=== PATIENT | female | born 1985 | race Caucasian/White ===

== ENCOUNTER 2023-12-16 12:10 | Emergency (ER) | payer MEDICAID, SELFPAY ==
--- NOTE | ~2023-12-16 | US_ITS ---
EXAMINATION: US PELVIS CLINICAL INFORMATION: Vaginal bleeding COMPARISON: None available. TECHNIQUE: Ultrasound of the pelvis is performed using both transabdominal and transvaginal transducers along with Doppler. Transvaginal imaging is performed due to inadequate visualization transabdominally. FINDINGS: Uterus: The uterus is anteverted and measures 10.4 x 5.8 x 6.3 cm. The double wall endometrial thickness is 13 mm. There is a 2.2 x 1.0 x 0.9 cm hyperechoic endometrial polyp present with a feeding vessel being identified. The uterus is smooth in contour and has normal myometrial echogenicity. No visible fibroid. Adnexa: Both ovaries are visualized. There is normal color flow to the adnexa. There is no ovarian torsion. There is no pelvic ascites or fluid collection. Right ovary measures 2.5 x 2.5 x 1.7 cm. No abnormal right adnexal findings. Normal vascularity. Left ovary measures 2.2 x 1.8 x 1.7 cm. No left ovarian/adnexal abnormality appreciated. Normal vascular flow. US/US pelvic and transvaginal IMPRESSION: 2.2 x 1.0 x 0.9 cm echogenic endometrial polyp.
[2023-12-16 12:34] VITALS: BP 117/83; PULSE 88; RESP 18; TEMP 36.4; O2SAT 97; BMI 42.9
--- NOTE | 2023-12-16 12:36 | ED_ITS ---
HPI - General Adult General Chief complaint: Vaginal Bleeding Stated complaint: excessive vaginal bleeding Time Seen by Provider: 12/16/23 15:04 Source: patient Mode of arrival: ambulatory Limitations: no limitations History of Present Illness HPI narrative: Patient is a 38-year-old female with history of migraines presenting to the emergency department with complaint of heavy vaginal bleeding during menstruation for the past 3 days. States that she has been passing large clots which is not typical for her. Also has been bleeding larger volume than normal, changing pads every 2-3 hours. Complains of lower abdominal cramping worse on the left. Denies any back or flank pain. Denies any dysuria or frequency, other urinary symptoms. Denies fevers. Denies concern for STIs. States the only medication she is currently on is sumatriptan as needed for migraines, and is requesting a refill as she has been using this the past 2 days and is almost out. Denies anticoagulants, or any other medications. MD complaint: Vaginal bleeding Onset (ago): day(s) Severity: moderate Quality: other (cramping) Pain Consistency: colicky Associated symptoms: denies other symptoms Treatments prior to arrival: none Related Data Previous Rx's Medication Instructions Recorded sumatriptan succinate 50 mg tablet See Rx Instructions PO .COMPLEX 12/16/23 #10 tabs Allergies Allergy/AdvReac Type Severity Reaction Status Date / Time No Known Allergies Allergy Verified 12/16/23 12:34 Review of Systems 2 Review of Systems: As per HPI. Yes all other systems are reviewed and are negative Constitutional: Constitutional: Reports as per HPI COUNTS INCLUDE 234 BEDS AT THE [facility] Social History Social History Advance Directives: No Physical Exam ED Vital Signs: Vital Signs - 24 hr 12/16/23 12:34 Temperature 97.6 F Pulse Rate 88 Respiratory Rate 18 Blood Pressure 117/83 Pulse Oximetry 97 Oxygen Delivery Method Room Air BMI result Body Mass Index 42.9 Vital signs have been reviewed and appear to be correct. Blood pressure normal. Heart rate normal. Respiratory rate normal. Temperature normal. Oxygen saturation normal. Const General: cooperative, healthy appearing and no acute distress Orientation/consciousness: oriented to person, oriented to place, oriented to time and patient oriented x3 Limitations: no limitations HENMT Head: Yes normocephalic and Yes atraumatic Ears: external ears normal General nose exam: Normal external nose present Face and sinus: Yes face symmetric Mouth: oropharynx normal and moist mucous membranes Throat: Yes uvula midline Eyes Pupils: Equal, round and reactive pupils present Neck Neck: Yes normal visual inspection and Yes supple Resp Effort & Inspection: normal respiratory effort and able to speak in complete sentences Auscultation: clear to auscultation bilaterally Cardio Rate: regular rate Rhythm: regular rhythm Heart sounds: S1 normal heart sound present and S2 normal heart sound present GI Palpation (GI): Soft to palpation and nontender Auscultation: normoactive bowel sounds General: Yes no CVA tenderness Back/Spine/Pelvis Back: no CVA tenderness Skin General skin exam: elasticity normal and turgor normal Neuro General: oriented to person, oriented to place, oriented to time, patient oriented x3, moves all extremities, no focal motor deficits and CN's II-XI intact bilaterally Cranial nerves: Yes Equal, round and reactive pupils present Cognition (Neuro): normal cognition Extrem General: Yes full ROM, Yes no pedal edema and Yes no calf tenderness Psych Mental Status: mental status grossly normal Affect: normal affect Thought process: Normal thought process present Course Course Course Narrative: RME:?38 yo female here for eval of vaignal bleeding x2 days. LMP 1 mo ago. Began her menstrual period 2 days ago and endorses increased vaginal bleeding with clots which has never happened to her before. Using maxi pads, changing them every 2-3 hours. Not on AC. She is not sexually active. Denies chance of . Denies fever, chills Labs, UA, ultrasound ordered. Full HPI, ROS and PE to be performed by the primary ED provider. Medical Decision Making Medical Decision Making MDM Narrative: Patient is a 38-year-old female with history of migraines presenting to the emergency department with complaint of heavy vaginal bleeding during menstruation for the past 3 days. States that she has been passing large clots which is not typical for her. On exam patient is awake, A+Ox3, VS WNL, afebrile, normal neurological exam without focal deficits, physical exam findings as above. Given reported symptoms and physical exam findings, initial differential includes abnormal uterine bleeding, heavy menstrual bleeding, anemia, uterine fibroids, endometrial polyp. Labs notable for negative HCG, normal H&H. Ultrasound notable for endometrial polyp. My interpretation is in agreement with the radiologist's interpretation. Results discussed with patient and all questions answered. Patient states she is new to this area, will refer to Dr. Calvin. Strict return precautions discussed at bedside. Will prescribe a few sumatriptan until patient is able to obtain refill through PCP. Patient verbalized understanding of and agreement with plan. Differential Diagnosis Differential Diagnoses: The differential diagnosis associated with the presentation includes As per MDM. Admission/Observation Consideration of admission/observation: Escalation of care including admission/observation considered Lab Data MDM Lab Attestation statement: I reviewed the patient's lab results. As per MDM. 12/16/23 14:09 12/16/23 14:09 Labs: Lab Results 12/16/23 Range/Units 14:09 WBC 7.7 (4.8-10.8) X10*3/uL RBC 5.01 (4.20-5.50) X10*6/uL Hgb 14.1 (12.0-16.0) g/dl Hct 43.0 (37.0-47.0) % MCV 85.8 (80.0-98.0) fL MCH 28.1 (27.0-33.0) pg MCHC 32.8 (31.0-35.0) g/dl RDW 15.0 (11.0-16.0) % Plt Count 252 (160-400) X10*3/uL MPV 8.5 L (9.4-12.3) fL Immature Gran % (Auto) 0.3 (0.0-0.4) % Neut % (Auto) 62.5 (45-73) % Lymph % (Auto) 29.8 (20-40) % [place] % (Auto) 5.7 (2-11) % Eos % (Auto) 0.8 (0-4) % Baso % (Auto) 0.9 (0-2) % Lymph # (Auto) 2.3 (1.2-4.9) X10*3/uL [place] # (Auto) 0.4 (0.1-1.2) X10*3/uL Eos # (Auto) 0.1 (0.0-0.4) X10*3/uL Baso # (Auto) 0.1 (0.0-0.2) X10*3/uL Abs Immat Gran (auto) 0.02 (0.00-0.03) X10*3/uL Absolute Neuts (auto) 4.8 (2.0-8.3) x10*3/uL Absolute Nucleated RBC 0.000 (0.0-0.012) X10*3/uL Nucleated RBC % (auto) 0.0 (0.0-0.2) /100WBC Sodium 139 (135-145) mmol/L Potassium 4.1 (3.3-5.1) mmol/L Chloride 107 (96-108) mmol/L Carbon Dioxide 28 (22-29) mmol/L Anion Gap 8 L (12-20) BUN 12 (9-16) mg/dL Creatinine 0.84 (0.5-1.4) mg/dL Estim Creat Clear Calc 110.9 Estimated GFR > 60 Random Glucose 100 (60-115) mg/dL Calcium 9.2 (8.4-10.2) mg/dL Beta HCG, Quant < 2 mIU/mL Independent Interpretation I performed an independent interpretation of an: Ultrasound Interpretation: endometrial polyp Radiology Impression Discussion of test interpretation with radiology: I have reviewed the radiologist's reading. Radiologist Impression: US/US pelvic and transvaginal IMPRESSION: 2.2 x 1.0 x 0.9 cm echogenic endometrial polyp. External Record Review External record reviewed: Inpatient record, Office record and Outpatient record Prescription Management I considered prescription management with: Pain Medication Discharge Plan Discharge Clinical Impression: Endometrial polyp, Vaginal bleeding Patient Disposition: Home, Self-Care Instructions: Dysfunctional Uterine Bleeding (ED), Endometrial Polyps (DC) Additional Instructions: You were evaluated in the emergency department today for vaginal bleeding. Your ultrasound showed an endometrial polyp. Please follow-up with the OBGYN this week. Return to the emergency department if you are bleeding through more than 1 pad per hour, develop worsening abdominal pain, fever 100.4? F or greater, dizziness or lightheadedness, fainting, chest pain, shortness of breath or any other concerning symptoms. Prescriptions: New sumatriptan succinate 50 mg tablet See Rx Instructions .ROUTE .COMPLEX Qty: 10 0RF Rx Instructions: take 1 tab at onset of headache; if no relief may repeat 1 tab after at least 2 hrs; max = 4 tabs/24 hr Referrals: Jericho Calvin MD [Physician] -
[2023-12-16 14:13] LABS: MANUAL DIFF FLAG NO
[2023-12-16 14:15] LABS: Basophils Absolute Auto 0.1 X10*3/uL (0.0-0.2); Basophils Percent Auto 0.9 % (0-2); Eosinophils Absolute Auto 0.1 X10*3/uL (0.0-0.4); Eosinophils Percent Auto 0.8 % (0-4); Hemoglobin 14.1 g/dl (12.0-16.0); Imm Gran Abs Auto 0.02 X10*3/uL (0.00-0.03); Imm Gran Pct Auto 0.3 % (0.0-0.4); Lymphocytes Absolute Auto 2.3 X10*3/uL (1.2-4.9); Lymphocytes Percent Auto 29.8 % (20-40); Mean Corpuscular HGB Conc 32.8 g/dl (31.0-35.0); Mean Corpuscular Hemoglobin 28.1 pg (27.0-33.0); Mean Corpuscular Volume 85.8 fL (80.0-98.0); Mean Platelet Volume 8.5 fL (9.4-12.3); Monocytes Absolute Auto 0.4 X10*3/uL (0.1-1.2); Monocytes Percent Auto 5.7 % (2-11); Neutrophils Absolute Auto 4.8 x10*3/uL (2.0-8.3); Neutrophils Percent Auto 62.5 % (45-73); Platelet Count 252 X10*3/uL (160-400); Red Blood Count 5.01 X10*6/uL (4.20-5.50); White Blood Count 7.7 X10*3/uL (4.8-10.8)
[2023-12-16 14:37] LABS: Anion Gap 8 (12-20); Blood Urea Nitrogen 12 mg/dL (9-16); Calcium 9.2 mg/dL (8.4-10.2); Carbon Dioxide 28 mmol/L (22-29); Chloride 107 mmol/L (96-108); Creatinine Clr Calc Pharmacy 110.9; Estimated Glomerular Filt Rate > 60; Glucose Random 100 mg/dL (60-115); Potassium 4.1 mmol/L (3.3-5.1); Sodium 139 mmol/L (135-145)
[2023-12-16 14:39] LABS: HCG Quantitative < 2 mIU/mL
== END 2023-12-16 16:38 | disposition home or self-care (01) ==
PROVIDERS: Physician Assistant Medical; Emergency Provider Emergency Medicine
DX: N84.0 Polyp of corpus uteri (principal); N93.8 Other specified abnormal uterine and vaginal bleeding; R25.2 Cramp and spasm; Z79.899 Other long term (current) drug therapy
CPT/HCPCS: 36415; 76830; 76856; 80048; 84702; 85025; 99282; 99284

== ENCOUNTER 2024-02-06 22:34 | Emergency (ER) | payer OTHER, SELFPAY ==
--- NOTE | ~2024-02-06 | XR_ITS ---
EXAMINATION: XR SOFT TISSUE NECK CLINICAL INDICATION: Pain. COMPARISON: None available. TECHNIQUE: 2 views of the soft tissue neck were obtained. FINDINGS: Soft tissue films of the neck demonstrate a normal larynx, pharynx and upper trachea. No soft tissue swelling or opaque foreign body is demonstrated. XR/XR soft tissue neck IMPRESSION: Unremarkable examination.
--- NOTE | ~2024-02-06 | XR_ITS ---
EXAMINATION: XR SHOULDER, LEFT CLINICAL INFORMATION: Pain. COMPARISON: None available. TECHNIQUE: 3 views of the left shoulder. FINDINGS: The bones and soft tissues are normal. No fracture. Glenohumeral and acromioclavicular alignment is anatomic with normal joint space. No abnormal soft tissue calcifications. XR/XR shoulder LT min 2V IMPRESSION: No significant abnormality identified.
[2024-02-06 22:46] VITALS: BP 149/101; PULSE 82; RESP 14; TEMP 36.9; O2SAT 98; BMI 42.8
--- NOTE | 2024-02-07 07:04 | ED_ITS ---
HPI - General Adult General Chief complaint: Neck Pain/Injury Stated complaint: left neck/shoulder pain work inj Time Seen by Provider: 02/07/24 07:03 Source: patient Mode of arrival: ambulatory Limitations: no limitations History of Present Illness HPI narrative: Patient is a 38 year old assigned female at with no reported medical history presenting to the emergency department today with left sided neck and shoulder pain. Patient states that over the last few days she has had left sided neck and shoulder pain that feels as a pinching and tingling feeling. Patient denies any dizziness, lightheadedness, abdominal pain, nausea, vomiting, fever, chills, blurry vision, double vision, loss of vision, chest pain, difficulty breathing, shortness of breath, back pain, night sweats, pain with urination, increased urinary frequency, increased urinary urgency, blood in her urine or stool, syncope or a near syncopal episode, recent trauma or falls, bowel incontinence, bladder incontinence, bowel retention, bladder retention, or any other complaints at this time. Onset (ago): day(s) Location: neck, left and upper extremity Severity: mild Severity scale (1-10): 4 Quality: aching and constant Pain Consistency: constant Relieving factors: none Exacerbating factors: none Associated symptoms: denies other symptoms Treatments prior to arrival: none Related Data Previous Rx's ?Medication ?Instructions ?Recorded sumatriptan succinate 50 mg tablet See Rx Instructions PO .COMPLEX 12/16/23 #10 tabs cyclobenzaprine 5 mg tablet 5 mg PO TID PRN shoulder pain 7 02/07/24 days #21 tabs sumatriptan succinate 50 mg tablet See Rx Instructions PO .COMPLEX 02/07/24 #10 tabs Allergies Allergy/AdvReac Type Severity Reaction Status Date / Time No Known Allergies Allergy Verified 02/06/24 22:49 Review of Systems Constitutional: Constitutional: Reports no additional constitutional complaints, Denies chills, Denies fever(s) and Denies night sweats Eyes: Eyes: Reports no additional eye complaints, Denies blurry vision, Denies change in vision, Denies diplopia, Denies eye discharge, Denies loss of vision and Denies eye pain ENT: Denies dizziness and Reports neck pain Cardiovascular: Cardiovascular: Reports no additional cardiovascular complaints, Denies chest pain, Denies lightheadedness, Denies Loss of Consciousness and Denies dyspnea Respiratory: Respiratory: Reports no additional respiratory complaints and Denies dyspnea Gastrointestinal: Gastrointestinal: Reports no additional gastrointestinal complaints, Denies abdominal pain, Denies melena, Denies hematochezia, Denies change in bowel habits and Denies change in stool character Genitourinary: Genitourinary: Denies hematuria, Denies urinary frequency, Denies dysuria, Denies urinary incontinence, Denies urinary hesitancy and Denies urinary urgency Musculoskeletal: Musculoskeletal: Reports no additional musculoskeletal complaints, Reports neck pain and Denies numbness Comments: left shoulder pain Neurologic: Denies dizziness, Denies loss of vision and Denies numbness Psychiatric: Psychiatric: Reports no additional psychiatric complaints Endocrine: Endocrine: Reports no additional endocrine complaints Hematologic/Lymphatic: Hematologic/Lymphatic: Reports no additional hematologic/lymphatic complaints Allergic/Immunologic: Allergic/Immunologic: Reports no additional allergic/immunologic complaints PMFSH Past Medical History Attestation statement: The following information was validated with the patient. Source: old records reviewed and nursing notes reviewed Social History Social History Advance Directives: No Advance Directives Information Provided: Yes Physical Exam ED Vital Signs: Vital Signs - 24 hr 02/06/24 22:46 02/07/24 07:23 02/07/24 07:45 Temperature 98.5 F 97.1 F 97.1 F Pulse Rate 82 88 88 Respiratory Rate 14 14 14 Blood Pressure 149/101 H 149/94 H 149/94 H Pulse Oximetry 98 100 100 Oxygen Delivery Method Room Air Room Air Room Air BMI result Body Mass Index 42.8 Const General: cooperative, no acute distress, alert and awake Nutritional Appearance: well nourished Orientation/consciousness: patient oriented x3 Limitations: no limitations [facility] Head: Yes normal to inspection and Yes atraumatic Ears: hearing grossly normal bilaterally and external ears normal General nose exam: Normal external nose present, no nasal discharge noted and no epistaxis Face and sinus: Yes normal facial exam, No abrasion and No laceration Mouth: Normal oral and palatal mucosa present, no drooling and no muffled voice Eyes General: appearance normal, both eyes and all related structures Periorbital: periorbital findings normal Eyelids: Yes eyelids normal Conjunctivae: conjunctivae normal Pupils: Equal, round and reactive pupils present EOM: EOMs intact bilaterally Neck Neck: Yes normal visual inspection, Yes full ROM and Yes no lymphadenopathy Chest Chest palpation & inspection: normal inspection of the chest Resp Effort & Inspection: normal respiratory effort and able to speak in complete sentences GI Inspection: Yes normal to inspection Neuro General: patient oriented x3 and moves all extremities Cranial nerves: Yes Equal, round and reactive pupils present Cognition (Neuro): normal cognition Motor exam (neuro): 5/5 motor strength present throughout Sensory Exam: Normal double simultaneous stimulation for sensation Coordination: [id number] test normal Extrem General: Yes normal to inspection, Yes full ROM and Yes capillary refill normal Psych Appearance: grossly normal Mental Status: mental status grossly normal Affect: normal affect Attitude: cooperative Thought process: Normal thought process present Thought content: Normal thought content present Insight: Good insight present (Psych) Medications Administered Discontinued Medications Generic Name Dose Route Start Last Admin Trade Name Freq PRN Reason Stop Dose Admin Cyclobenzaprine HCl 5 mg 02/07/24 07:18 02/07/24 07:37 Cyclobenzaprine Hcl 5 Mg Tablet PO 02/07/24 07:19 5 mg ONCE ONE Administration Ketorolac Tromethamine 15 mg 02/07/24 07:18 02/07/24 07:37 Ketorolac Tromethamine 15 Mg/Ml Vial IM 02/07/24 07:19 15 mg ONCE ONE Administration Medical Decision Making Medical Decision Making [facility] Narrative: Patient is a 38 year old assigned female at with no reported medical history presenting to the emergency department today with left sided neck and shoulder pain. Patient's physical exam was unremarkable. Patient's left shoulder and soft tissue neck x-rays showed no acute process. I explained my physical exam findings as well as all test results to the patient. I answered all questions asked by the patient. I stressed the importance of the patient taking her medication as prescribed. I stressed the importance of the patient following up with her primary care provider and an orthopedic provider. I stressed the importance of the patient returning to the emergency department immediately if her symptoms were to worsen or if she were to develop any dizziness, shortness of breath, difficulty breathing, chest pain, blurry vision, loss of vision, nausea, vomiting, abdominal pain, fever, chills, back pain, or any other complaints. Patient verbalized agreement and understanding with this treatment plan and discharge. Differential Diagnosis Differential Diagnoses: The differential diagnosis associated with the presentation includes Cervical radiculopathy Neck pain Shoulder pain Admission/Observation Consideration of admission/observation: Escalation of care including admission/observation considered Patient would have been admitted to the hospital had her work up had any findings where hospital admission was appropriate and her clinical presentation warranted hospital admission. Independent Interpretation I performed an independent interpretation of an: Plain X-Ray Interpretation: My interpretation is in agreement with the radiologist's impression of these imaging studies. EXAMINATION: XR SOFT TISSUE NECK CLINICAL INDICATION: Pain. COMPARISON: None available. TECHNIQUE: 2 views of the soft tissue neck were obtained. FINDINGS: Soft tissue films of the neck demonstrate a normal larynx, pharynx and upper trachea. No soft tissue swelling or opaque foreign body is demonstrated. XR/XR soft tissue neck IMPRESSION: Unremarkable examination. Dictated By: Tushar Blake Signed By: Electronically signed by Tushar Blake 02/07/24 0020 EXAMINATION: XR SHOULDER, LEFT CLINICAL INFORMATION: Pain. COMPARISON: None available. TECHNIQUE: 3 views of the left shoulder. FINDINGS: The bones and soft tissues are normal. No fracture. Glenohumeral and acromioclavicular alignment is anatomic with normal joint space. No abnormal soft tissue calcifications. XR/XR shoulder LT min 2V IMPRESSION: No significant abnormality identified. Dictated By: Tushar Blake Signed By: Electronically signed by Tushar Blake 02/06/24 [id number] Radiology Impression Discussion of test interpretation with radiology: I have reviewed the radiologist's reading. Prescription Management I considered prescription management with: Pain Medication (patient prescribed pain medication) Discharge Plan Discharge Clinical Impression: Cervical radiculopathy Patient Disposition: Home, Self-Care Instructions: Cervical Radiculopathy (ED) Additional Instructions: Follow up with your primary care provider. Return to the emergency department immediately if your symptoms worsen or if you develop any dizziness, shortness of breath, difficulty breathing, chest pain, blurry vision, loss of vision, nausea, vomiting, abdominal pain, fever, chills, back pain, or any other complaints. Prescriptions: New cyclobenzaprine 5 mg tablet 5 mg PO TID PRN (Reason: shoulder pain) 7 Days Qty: 21 0RF sumatriptan succinate 50 mg tablet See Rx Instructions .ROUTE .COMPLEX Qty: 10 3RF Rx Instructions: take 1 tab at onset of headache; if no relief may repeat 1 tab after at least 2 hrs; max = 4 tabs/24 hr No Action sumatriptan succinate 50 mg tablet See Rx Instructions .ROUTE .COMPLEX Qty: 10 0RF Rx Instructions: take 1 tab at onset of headache; if no relief may repeat 1 tab after at least 2 hrs; max = 4 tabs/24 hr Referrals: [facility] Family Medicine [Provider Group] (Call to establish and follow up with a primary care provider. If you already have a primary care provider, please follow up with them.) [facility] Primary Care[facility] [Provider Group] [facility] Primary [facility] [Provider Group] [facility] [Provider Group] (Call to establish and follow up with an orthopedic provider. ) Stand Alone Forms: Work/School Release Interventions: ED Discharge Assessment Last Done: 02/07/24 07:45 Discharge Date/Time: 02/07/24 07:46 Print Language: Citizen Of [place]
[2024-02-07 07:23] VITALS: BP 149/94; PULSE 88; RESP 14; TEMP 36.2; O2SAT 100
[2024-02-07] MEDS: Cyclobenzaprine HCl 5 MG TABLET PO (07:37)
[2024-02-07] MEDS: Ketorolac Tromethamine 15 MG/ML VIAL IM (07:37)
[2024-02-07 07:45] VITALS: BP 149/94; PULSE 88; RESP 14; TEMP 36.2; O2SAT 100
== END 2024-02-07 07:46 | disposition home or self-care (01) ==
PROVIDERS: Emergency Provider Emergency Medicine
DX: M54.12 Radiculopathy, cervical region (principal); M25.512 Pain in left shoulder; M54.2 Cervicalgia
CPT/HCPCS: 70360; 73030; 96372; 99283; 99284; J1885

== ENCOUNTER 2025-04-05 09:17 | Outpatient (AMB) | payer OTHER, SELFPAY ==
--- NOTE | 2025-04-05 09:20 | MHC.PC.OV ---
Vital Signs 04/05/25 09:22 04/05/25 09:52 Height 5 ft 3.98 in Weight 232 lb BMI 39.8 BP 120/80 150/112 H Blood Pressure Location Lt brachial Lt brachial Position Sitting Sitting Pulse 72 Pulse Source Pulse Oximeter Temp 97.1 F Temp Source Temporal Artery Scan Pulse Oximetry (%) 99 Oxygen Delivery Method Room Air Intake Visit Reasons: establish care Intake Note: Patient is a new patient here to establish care for Migraine, HTN, neck/upper back pain, right foot pain. Transferring care from . Medical records have been requested and have not received. Graduate Fellow Required: No Textile Conversion Manager: Not Required per policy Accompanied by: Self / Same As Patient Allergies No Known Allergies Allergy (Verified 04/05/25 09:43) Medication List - Last Reconciled 04/05/25 by Geraldine Nicholas PA-C propranolol ER 60 mg PO DAILY sumatriptan succinate take 1 tab at onset of headache; if no relief may repeat 1 tab after at least 2 hrs; max = 4 tabs/24 hr Tobacco use date assessed: 04/05/25 Dental Screening Dental Screen Date: 04/05/25 Did you have a dental visit in the last 12 months?: Yes Did you have a dental problem in the last 6 months where you did not have access to dental care?: No Was dental information given to patient?: Patient has dentist HPI establish care HPI Details 39-year-old female coming to the office for the 1st time. Presenting with hypertension and migraine management concerns. Hypertension was noted at multiple instances, with high readings initially observed by a dentist and later confirmed by ER visits starting December/December of the current year. Home readings consistently high. Symptoms include headaches and dizziness associated with elevated pressure. She was recently seen in [facility] this [place] workup was reassuring. Migraine episodes have been a chronic issue, managed with propranolol and sumatriptan, taken when symptoms arise. Describes limitations due to a restricted medication supply. The patient experienced increased menstrual bleeding last year, investigated at the ER and diagnosed as an endometrial polyp, but no specialist follow-up occurred. She mentioned infertility concerns, as conception efforts with her partner have been unsuccessful over the past several months. [facility] Surgical History No pertinent past surgical history Social History (Reviewed 04/05/25 @ 09:55 by CAN Franco Housing: Apartment Alcohol intake: never Patient Tobacco Use Status: Never used Tobacco e-Cigarette/Vaping Use: Never Used Second Hand Smoke Exposure: No service: No Current occupational status: unemployed Cognitive needs: No Hearing needs: No Vision needs: No Questionnaire PHQ-9 Over the last 2 weeks, how often have you been bothered by any of the following problems? 1. Little interest or pleasure in doing things: several days 2. Feeling down, depressed, or hopeless: several days 3. Trouble falling or staying asleep, or sleeping too much: several days 4. Feeling tired or having little energy: not at all 5. Poor appetite or overeating: several days 6. Feeling bad about yourself - or that you are a failure or have let yourself or your family down: not at all 7. Trouble concentrating on things, such as reading the newspaper or watching television: not at all 8. Moving or speaking so slowly that other people could have noticed. Or the opposite - being so fidgety or restless that you have been moving around a lot more than usual: not at all 9. Thoughts that you would be better off or of hurting yourself in some way: not at all Total score: 4 Depression Screening Interpretation: Positive Depression Screening Done: Yes Source: Developed by Drs. Tushar Robles, Paola Alaniz, Ezekiel Dorsey and colleagues, with an educational viktoriya from [employer]. Thrive Questionnaire Date Thrive assessed: 03/29/25 I am a: Patient What is your living situation today?: I do not have a steady places to live I am temporarily staying with others Within the past 12 months, did the food you bought not last and you didn't have the money to get more?: Often true Within the past 12 months, did you worry whether your food would run out before you got money to buy more?: Often true Do you have trouble paying for medicines?: No Do you have trouble getting transportation to medical appointments?: No Do you have trouble paying your heating and electricity bill?: I choose not to answer this question Do you have trouble taking care of your child, family member or friend?: I choose not to answer this question Do you have trouble with day-to-day activities such as bathing, preparing meals, shopping, managing finances, etc.?: No Are you currently unemployed and looking for a job?: Yes Are you interested in more education?: Yes Please select the resources that you would like help with: Housing/Chcf, Food, Job search/training and Education Currently or been in a relationship where the following occur: I choose not to answer THRIVE Score: 3 AUDIT C Alcohol Use Questionnaire (AUDIT-C) 1. How often do you have a drink containing alcohol?: Never 3. How often do you have six or more drinks on one occasion?: Never Total Score: 0 GABBY-7 AMB Questionnaire GABBY-7 Date GABBY - 7 assessed: 04/05/25 Feeling nervous, anxious, or on edge: 1 = Several days Not being able to stop or control worryin = Several days Worrying too much about different things: 1 = Several days Trouble relaxin = Several days Being so restless that it is hard to sit still: 0 = Not at all Becoming easily annoyed or irritable: 1 = Several days Feeling afraid as if something awful might happen: 1 = Several days Total GABBY-7 score (0-4 normal; 5-9 mild; 10-14 moderate; 15-21 severe): 6 Source: Developed by Drs. Tushar Robles, Paola Alaniz, Ezekiel Dorsey and colleagues, with an educational viktoriya from [employer]. Review of Systems Const Denies body aches, Denies chills, Denies fever(s), Reports headache(s) and Denies poor appetite Eyes Reports no additional complaints ENT Denies dysphagia, Denies dizziness, Reports headache(s) and Denies odynophagia Card Denies chest pain, Denies syncope, Denies edema, Denies irregular heart rhythm, Denies lightheadedness and Denies dyspnea Resp Denies cough and Denies dyspnea GI Denies abdominal pain, Denies constipation, Denies dysphagia, Denies diarrhea, Denies nausea, Denies odynophagia and Denies vomiting Reports no additional complaints Musc Reports no additional complaints and Denies abnormal gait Skin/Breast Reports system reviewed and no additional complaints, except as documented Neuro Denies abnormal gait, Denies dizziness, Denies syncope and Reports headache(s) Psych Reports no additional complaints Physical exam (Primary Care) Vital Signs: Last Vital Signs Temp 97.1 F 04/05/25 09:22 Pulse 72 04/05/25 09:22 BP 120/80 04/05/25 09:22 Pulse Ox 99 04/05/25 09:22 Oxygen Delivery Method Room Air 04/05/25 09:22 BMI result Body Mass Index 39.8 Tobacco/Smoking Status: Tobacco use Status Tobacco use date assessed 04/05/25 04/05/25 09:34 Patient Tobacco Use Status Never used Tobacco 04/05/25 09:34 e-Cigarette/Vaping Use Never Used 04/05/25 09:34 PHQ-9: PHQ-9 Score PHQ-9: Total score 4 04/05/25 09:34 Depression Screening Interpretation: Positive Thrive Assessment: Date of Thrive Assessment Date Thrive assessed 03/29/25 04/05/25 09:34 Currently or been in a relationship where the following occur: I choose not to answer Const General: cooperative, healthy appearing, comfortable and no acute distress Orientation/consciousness: patient oriented x3 HENMT Head: Yes normocephalic Ears: hearing grossly normal bilaterally General nose exam: Normal external nose present Eyes General: appearance normal, both eyes and all related structures Conjunctivae: conjunctivae normal Neck Neck: Yes full ROM and Yes no lymphadenopathy Resp Effort & Inspection: normal respiratory effort Auscultation: clear to auscultation bilaterally, no crackles, no rales, no rhonchi and no wheezes Cardio Rate: regular rate Rhythm: regular rhythm Skin General skin exam: no rashes or lesions noted Neuro General: patient oriented x3 Gait exam (Neuro): Normal gait present Extrem General: Yes normal to inspection, Yes full ROM and No edema Psych Affect: normal affect Attitude: cooperative Insight: Good insight present (Psych) Judgement: Good judgement present (Psych) Coding Level of Care Code New Pt Level 4 (64918) Diagnoses Migraine G43.909 Hypertension I10 Heavy menses N92.0 Infertility, female N97.9 Obesity (BMI 30-39.9) E66.9 Assessment & Plan Assessment & Plan (1) Migraine: Code(s): G43.909 - Migraine, unspecified, not intractable, without status migrainosus Category: Medical Plan: Patient reporting occasional migraines she uses sumatriptan as needed with good benefit. (2) Hypertension: Code(s): I10 - Essential (primary) hypertension Category: Medical Plan: Patient was previously on propranolol supposedly supposed to be taking it every day but was only using as needed. At this time her blood pressure remains extremely elevated in several instances and as well as home. Plan to start on amlodipine 5 mg for blood pressure management as propranolol has not been effective. Avoid salt intake and encourage healthy diet and regular exercise. Denies any symptoms at this time. Reviewed red flag symptoms and when to present for re-evaluation (3) Heavy menses: Code(s): N92.0 - Excessive and frequent menstruation with regular cycle Category: Medical Plan: Patient reporting heavy menses for several years. Referral was placed to gynecology today. (4) Infertility, female: Code(s): N97.9 - Female infertility, unspecified Category: Medical Plan: Patient has been trying to can not see for over 7 months. Referral was placed to [facility] today. (5) Obesity (BMI 30-39.9): Code(s): E66.9 - Obesity, unspecified Category: Medical Plan: Healthy diet and regular exercise is encouraged. Referral was placed to weight management clinic at patient request. She is interested in possible surgical correction. Plan This note was constructed using voice recognition software. While every effort has been made to ensure accuracy and clinical business analyst, still areas may have been included sometimes these areas may affect the content or meeting of the given symptoms. Total time spent caring for the patient today was 30 minutes. This includes time spent before the visit reviewing the chart, time spent during the visit, and time spent after the visit and documentation. Patient was informed and verbally consented to the use of an ambient scribe for clinic note documentation during this visit. Orders: Orders Vitamin D 25-OH Total Today I10 - Essential (primary) hypertension, Z00.00 - Encounter for general adult medical examination without abnormal findings TSH reflex Free T4 Today I10 - Essential (primary) hypertension, Z00.00 - Encounter for general adult medical examination without abnormal findings Free T4 (Free Thyroxine) Today I10 - Essential (primary) hypertension, Z00.00 - Encounter for general adult medical examination without abnormal findings Vitamin B12 and Folate Today I10 - Essential (primary) hypertension, Z13.21 - Encounter for screening for nutritional disorder Comprehensive Met. Panel Today I10 - Essential (primary) hypertension, Z00.00 - Encounter for general adult medical examination without abnormal findings Complete Blood Count Auto Diff Today I10 - Essential (primary) hypertension, Z00.00 - Encounter for general adult medical examination without abnormal findings Lipid Panel Today Z13.220 - Encounter for screening for lipoid disorders Referrals Infertility Reproductive Referral (female) N97.9 - Female infertility, unspecified Medical Weight Management Referral E66.9 - Obesity, unspecified Nurse Navigator Referral I10 - Essential (primary) hypertension IT BUSINESS PROCESS ARCHITECT Referral N92.0 - Excessive and frequent menstruation with regular cycle, Z12.4 - Encounter for screening for malignant neoplasm of cervix Medications: New amlodipine 5 mg PO DAILY 30 tabs 1RF Refilled sumatriptan succinate take 1 tab at onset of headache; if no relief may repeat 1 tab after at least 2 hrs; max = 4 tabs/24 hr 10 tabs 3RF Discontinued sumatriptan succinate Discontinued Reason: Duplicate take 1 tab at onset of headache; if no relief may repeat 1 tab after at least 2 hrs; max = 4 tabs/24 hr 10 tabs 0RF cyclobenzaprine Discontinued Reason: Patient no longer taking 5 mg PO TID 7 days PRN 21 tabs 0RF shoulder pain
[2025-04-05 09:22] VITALS: BP 120/80; PULSE 72; TEMP 36.2; O2SAT 99; BMI 39.8
[2025-04-05 09:52] VITALS: BP 150/112
== END 2025-04-05 10:15 | disposition home or self-care (01) ==
LOC: HO.HMCH 09:18
DX: G43.909 Migraine, unspecified, not intractable, without status migrainosus (principal); I10 Essential (primary) hypertension; N92.0 Excessive and frequent menstruation with regular cycle; N97.9 Female infertility, unspecified; E66.9 Obesity, unspecified

== ENCOUNTER → 2025-04-05 09:17 | Outpatient (BNVA) | payer OTHER, SELFPAY | DX: I10 Essential (primary) hypertension (principal); G43.909 Migraine, unspecified, not intractable, without status migrainosus; M54.2 Cervicalgia; M79.671 Pain in right foot; N92.0 Excessive and frequent menstruation with regular cycle; N97.9 Female infertility, unspecified; E66.9 Obesity, unspecified; Z68.39 Body mass index [BMI] 39.0-39.9, adult | CPT/HCPCS: 99202 ==

== ENCOUNTER → 2025-05-09 11:45 | Outpatient (BNVA) | payer OTHER, SELFPAY | DX: Z01.30 Encounter for examination of blood pressure without abnormal findings (principal) | CPT/HCPCS: 99211 ==

== ENCOUNTER 2025-06-13 09:33 | Outpatient (REF) | payer OTHER, SELFPAY ==
[2025-06-13 10:55] LABS: MANUAL DIFF FLAG NO
[2025-06-13 11:01] LABS: Hematocrit 37.1 % (37.0-47.0); Hemoglobin 12.1 g/dl (12.0-16.0); Imm Gran Abs Auto 0.02 X10*3/uL (0.00-0.03); Imm Gran Pct Auto 0.3 % (0.0-0.4); Lymphocytes Absolute Auto 2.6 X10*3/uL (1.2-4.9); Mean Corpuscular HGB Conc 32.6 g/dl (31.0-35.0); Mean Corpuscular Hemoglobin 27.7 pg (27.0-33.0); Mean Corpuscular Volume 84.9 fL (80.0-98.0); NRBC Abs Auto 0.000 X10*3/uL (0.0-0.012); NRBC Pct Auto 0.0 /100WBC (0.0-0.2); Platelet Count 264 X10*3/uL (160-400); Red Blood Count 4.37 X10*6/uL (4.20-5.50); White Blood Count 7.9 X10*3/uL (4.8-10.8)
[2025-06-13 11:26] LABS: Alanine Aminotransferase 13 U/L (0-31); Albumin Level 3.9 g/dL (3.5-5.0); Alkaline Phosphatase 82 U/L (39-117); Anion Gap 10 (12-20); Aspartate Amino Transferase 24 U/L (5-31); Blood Urea Nitrogen 12 mg/dL (9-16); Calcium 8.3 mg/dL (8.4-10.2); Carbon Dioxide 25 mmol/L (22-29); Chloride 107 mmol/L (96-108); Cholesterol 162 mg/dL (<200); Estimated Glomerular Filt Rate > 60; HDL Cholesterol 39 mg/dL (>40); Potassium 4.0 mmol/L (3.3-5.1); Sodium 138 mmol/L (135-145); Total Protein 6.7 g/dL (6.5-8.0); Triglycerides 68 mg/dL (<150)
[2025-06-13 11:44] LABS: Free T4 (Free Thyroxine) 1.02 ng/dL (0.71-1.85)
[2025-06-13 11:48] LABS: Folate 10.3 ng/mL (> or = 4.0); Vitamin B12 550 pg/mL (200-900)
== END 2025-06-13 09:34 | disposition home or self-care (01) ==
LOC: HO.10HDL 09:33
DX: I10 Essential (primary) hypertension (principal); E66.9 Obesity, unspecified; N97.9 Female infertility, unspecified; K59.00 Constipation, unspecified; J34.89 Other specified disorders of nose and nasal sinuses; Z00.00 Encounter for general adult medical examination without abnormal findings
CPT/HCPCS: 36415; 80053; 80061; 82306; 82607; 82746; 84439; 84443; 85025; 99212

== ENCOUNTER 2025-06-13 14:45 | Outpatient (AMB) | payer OTHER, SELFPAY ==
--- NOTE | 2025-06-13 14:58 | A.OFFPC_ITS ---
Vital Signs 06/13/25 15:00 06/13/25 15:23 Height 5 ft 3.98 in Weight 233 lb BMI 40.0 BP 140/90 H 148/102 H Blood Pressure Location Lt brachial Lt brachial Position Sitting Sitting Pulse 75 Pulse Source Pulse Oximeter Pulse Oximetry (%) 97 Oxygen Delivery Method Room Air Intake Visit Reasons: f/u repeat phq-9 Health Systems Analyst Required: No Accompanied by: Self / Same As Patient Allergies No Known Allergies Allergy (Verified 06/13/25 15:12) Medication List - Last Reconciled 06/13/25 by Geraldine Nicholas PA-C nifedipine ER 30 mg PO DAILY sumatriptan succinate take 1 tab at onset of headache; if no relief may repeat 1 tab after at least 2 hrs; max = 4 tabs/24 hr Tobacco use date assessed: 06/13/25 Dental Screening Dental Screen Date: 06/13/25 Did you have a dental visit in the last 12 months?: Yes Did you have a dental problem in the last 6 months where you did not have access to dental care?: No Was dental information given to patient?: Patient has dentist HPI f/u repeat phq-9 HPI Details 40 year old female with past medical his tory of migraine, hypertension, heavy menses, obesity last seen 03/2025 coming in for follow up. Presenting with concerns about hypertension management during , evaluation of sinus symptoms, and addressing constipation issues. The patient has a history of hypertension and was prescribed nifedipine, which she stopped taking due to concerns about its safety during . She has not been monitoring her blood pressure at home but reports feeling that it is under control. However, an in-office measurement showed elevated blood pressure at 140/102 mmHg. The patient experienced a miscarriage recently and is concerned about the potential impact of nifedipine on . She is attempting to conceive again and is considering alternative antihypertensive medications. The patient reports sinus pressure and headaches for the past three weeks, with occasional nosebleeds. She denies runny nose but experiences severe headaches. The patient experiences constipation, with bowel movements occurring every two to three days. She has tried dietary fiber supplements in the past but is concer gabriela about dependency. Her water intake is low, which may contribute to her symptoms. [facility] Surgical History No pertinent past surgical history Social History Housing: Apartment Alcohol intake: never Patient Tobacco Use Status: Never used Tobacco e-Cigarette/Vaping Use: Never Used Second Hand Smoke Exposure: No service: No Current occupational status: unemployed Cognitive needs: No Hearing needs: No Vision needs: No Questionnaire Thrive Questionnaire Date Thrive assessed: 06/13/25 I am a: Patient What is your living situation today?: I do not have a steady places to live I am temporarily staying with others Within the past 12 months, did the food you bought not last and you didn't have the money to get more?: Often true Within the past 12 months, did you worry whether your food would run out before you got money to buy more?: Often true Do you have trouble paying for medicines?: No Do you have trouble getting transportation to medical appointments?: No Do you have trouble paying your heating and electricity bill?: I choose not to answer this question Do you have trouble taking care of your child, family member or friend?: I choose not to answer this question Do you have trouble with day-to-day activities such as bathing, preparing meals, shopping, managing finances, etc.?: No Are you currently unemployed and looking for a job?: Yes Are you interested in more education?: Yes Currently or been in a relationship where the following occur: I choose not to answer THRIVE Score: 3 GABBY-7 AMB Questionnaire GABBY-7 Date GABBY - 7 assessed: 06/13/25 Source: Developed by Drs. Tushar Robles, Paola Alaniz, Ezekiel Dorsey and colleagues, with an educational viktoriya from [employer]. Review of Systems Const Denies body aches, Denies chills, Denies fever(s), Denies headache(s) and Denies poor appetite Eyes Reports no additional complaints ENT Denies dysphagia, Denies dizziness, Denies headache(s) and Denies odynophagia Card Denies chest pain, Denies syncope, Denies edema, Denies irregular heart rhythm, Denies lightheadedness and Denies dyspnea Resp Denies cough and Denies dyspnea GI Denies abdominal pain, Denies constipation, Denies dysphagia, Denies diarrhea, Denies nausea, Denies odynophagia and Denies vomiting Reports no additional complaints Musc Reports no additional complaints and Denies abnormal gait Skin/Breast Reports system reviewed and no additional complaints, except as documented Neuro Denies abnormal gait, Denies dizziness, Denies syncope and Denies headache(s) Psych Reports no additional complaints Physical exam (Primary Care) Vital Signs: Last Vital Signs Pulse 75 06/13/25 15:00 BP 148/102 H 06/13/25 15:23 Pulse Ox 97 06/13/25 15:00 Oxygen Delivery Method Room Air 06/13/25 15:00 BMI result Body Mass Index 40.0 Tobacco/Smoking Status: Tobacco use Status Tobacco use date assessed 06/13/25 06/13/25 15:01 Patient Tobacco Use Status Never used Tobacco 06/13/25 15:01 e-Cigarette/Vaping Use Never Used 06/13/25 15:01 Thrive Assessment: Date of Thrive Assessment Date Thrive assessed 06/13/25 06/13/25 15:01 Currently or been in a relationship where the following occur: I choose not to answer Const General: cooperative, healthy appearing, comfortable and no acute distress Orientation/consciousness: patient oriented x3 HENMT Head: Yes normocephalic Ears: hearing grossly normal bilaterally General nose exam: Normal external nose present Eyes General: appearance normal, both eyes and all related structures Conjunctivae: conjunctivae normal Neck Neck: Yes full ROM and Yes no lymphadenopathy Resp Effort & Inspection: normal respiratory effort Auscultation: clear to auscultation bilaterally, no crackles, no rales, no rhonchi and no wheezes Cardio Rate: regular rate Rhythm: regular rhythm Skin General skin exam: no rashes or lesions noted Neuro General: patient oriented x3 Gait exam (Neuro): Normal gait present Extrem General: Yes normal to inspection, Yes full ROM and No edema Psych Affect: normal affect Attitude: cooperative Insight: Good insight present (Psych) Judgement: Good judgement present (Psych) Coding Level of Care Code Est Pt Level 4 (06259) Diagnoses Hypertension I10 Obesity (BMI 30-39.9) E66.9 Infertility, female N97.9 Z34.90 Constipation K59.00 Sinus pressure J34.89 Assessment & Plan Assessment & Plan (1) Hypertension: Code(s): I10 - Essential (primary) hypertension Category: Medical Plan: Continue on current blood pressure medication. Avoid salt intake and encourage healthy diet and regular exercise. Plan to start on Labetolol 100mg BID but start with once daily dosing for tolerability x1 week before increasing. (2) Obesity (BMI 30-39.9): Code(s): E66.9 - Obesity, unspecified Category: Medical Plan: Healthy diet and regular exercise is encouraged. Referral was placed to weight management clinic at patient request. She is interested in possible surgical correction. (3) Infertility, female: Code(s): N97.9 - Female infertility, unspecified Category: Medical Plan: She is awaiting appointment at this time. (4) : Code(s): Z34.90 - Encounter for supervision of normal , unspecified, unspecified trimester Category: Medical Plan: She believes she may be and blood test was ordered today. (5) Constipation: Code(s): K59.00 - Constipation, unspecified Category: Medical Plan: Reminded patient about 3 rules of constipation; increase water intake, increase fiber intake and exercise as tolerated. (6) Sinus pressure: Code(s): J34.89 - Other specified disorders of nose and nasal sinuses Category: Medical Plan: Low suspicion for sinusitis as she is not having congestion, fevers or any other symptoms. She is advised to continue to monitor her symptoms and given saline nasal spray. Plan The patient will discontinue nifedipine due to concerns about its safety during and will start labetalol, beginning with once daily dosing and increasing to twice daily as tolerated. Blood pressure will be monitored closely to ensure it remains controlled, especially given the patient's desire to conceive. For sinus symptoms, a saline nasal spray will be prescribed to alleviate dryness and congestion, and the patient is advised to avoid decongestants due to their potential to raise blood pressure. An allergy medication such as Zyrtec will be provided to help manage symptoms. To address constipation, the patient is encouraged to increase water intake to at least four to five bottles per day and to incorporate more fiber-rich foods into her diet. A list of high-fiber foods will be provided to assist with dietary changes. The patient will undergo a urine test to determine current status, and vitamin D supplementation will be added to her regimen due to low levels, which is safe during . This note was constructed using voice recognition software. While every effort has been made to ensure accuracy and wet process operator, still areas may have been included sometimes these areas may affect the content or meeting of the given symptoms. Total time spent caring for the patient today was 30 minutes. This includes time spent before the visit reviewing the chart, time spent during the visit, and time spent after the visit and documentation. Patient was informed and verbally consented to the use of an ambient scribe for clinic note documentation during this visit. Orders: Orders HCG Quantitative Today Z34.90 - Encounter for supervision of normal , unspecified, unspecified trimester Medications: New labetalol 100 mg PO BID 60 tabs 1RF sodium chloride 0.65% (Plain Saline) 1 spray intranasal BID PRN 50 mL 0RF dry nasal passages cholecalciferol (vitamin D3) 25 mcg PO DAILY 90 caps 3RF cetirizine (All Day Allergy (cetirizine)) 10 mg PO DAILY PRN 90 tabs 0RF allergy symptoms Discontinued nifedipine ER Discontinued Reason: Patient no longer taking 30 mg PO DAILY 90 tabs 0RF
[2025-06-13 15:00] VITALS: BP 140/90; PULSE 75; O2SAT 97; BMI 40.0
[2025-06-13 15:23] VITALS: BP 148/102
== END 2025-06-13 15:45 | disposition home or self-care (01) ==
LOC: HO.HMCH 14:46
DX: I10 Essential (primary) hypertension (principal); E66.9 Obesity, unspecified; Z68.41 Body mass index [BMI] 40.0-44.9, adult; N97.9 Female infertility, unspecified; Z34.90 Encounter for supervision of normal pregnancy, unspecified, unspecified trimester; K59.00 Constipation, unspecified; J34.89 Other specified disorders of nose and nasal sinuses

== ENCOUNTER 2025-07-04 13:15 | Outpatient (AMB) | payer OTHER, SELFPAY ==
--- NOTE | 2025-07-04 13:16 | AM.OFFWIN_ITS ---
Intake Vital Signs 3 07/04/25 13:17 Height 5 ft 3 in Weight 231 lb BMI 40.9 BP 118/86 Blood Pressure Location Rt brachial Position Sitting Respiration 14 Pulse 78 Pulse Source Pulse Oximeter Temp 98.8 F Temp Source Oral Pulse Oximetry (%) 97 Oxygen Delivery Method Room Air Intake Visit Reasons: EP-upper lips swollen Patient Tobacco Use Status: Never used Tobacco Allergies No Known Allergies Allergy (Verified 06/13/25 15:12) HPI HPI Comments 2 History of Present Illness0 Details 40 y/o Female patient who presents to [facility] walk in clinic with c/o Cold upper lip - mouth. Reports noticing it yesterday and she started using Abreva OTC. She does get cold sores frequently - this year she has had 3 outbreaks. Reports being under tremendous Stress at home this year. Denies fevers, chills, nausea or vomiting. [facility] Medical History (Updated 07/04/25 @ 13:49 by Vanita Law NP) HSV (herpes simplex virus) infection Surgical History No pertinent past surgical history Social History Housing: Apartment Alcohol intake: never Patient Tobacco Use Status: Never used Tobacco e-Cigarette/Vaping Use: Never Used Second Hand Smoke Exposure: No service: No Current occupational status: unemployed Cognitive needs: No Hearing needs: No Vision needs: No Review of Systems Const All systems reviewed & are unremarkable except as noted in HPI and below Physical Exam Vital Signs: Last Vital Signs Temp 98.8 F 07/04/25 13:17 Pulse 78 07/04/25 13:17 Resp 14 07/04/25 13:17 BP 118/86 07/04/25 13:17 Pulse Ox 97 07/04/25 13:17 Oxygen Delivery Method Room Air 07/04/25 13:17 BMI result Body Mass Index 40.9 Const General: no acute distress Nutritional Appearance: obese Orientation/consciousness: patient oriented x3 HEENT Head: Yes normocephalic Face images: 2 1. A group of pinpoint vesicular Rash upper Lip. Mouth: lip abnormal (A group of pinpoint vesicular Rash upper Lip) Neuro General: patient oriented x3, gait normal and moves all extremities Psych Speech and movement: Normal speech and movement present Assessment & Plan Assessment & Plan (1) HSV (herpes simplex virus) infection: Code(s): B00.9 - Herpesviral infection, unspecified Plan: Ordered Valtrex for 7 days. Continue using Abreva Medications: New 2 valacyclovir (Valtrex) 1,000 mg PO BID 14 tabs 2RF 7 days B00.9 - Herpesviral infection, unspecified Coding Level of Care Code Est Pt Level 4 (65833) Diagnoses HSV (herpes simplex virus) infection B00.9 Time Spent (min) 20
[2025-07-04 13:17] VITALS: BP 118/86; PULSE 78; RESP 14; TEMP 37.1; O2SAT 97; BMI 40.9
== END 2025-07-04 14:02 | disposition home or self-care (01) ==
PROVIDERS: Visit Provider Nurse Practitioner Family
DX: B00.9 Herpesviral infection, unspecified (principal)

== ENCOUNTER → 2025-07-04 13:15 | Outpatient (BNVA) | payer OTHER, SELFPAY | PROVIDERS: Visit Provider Nurse Practitioner Family | DX: I10 Essential (primary) hypertension (principal); B00.9 Herpesviral infection, unspecified | CPT/HCPCS: 99212 ==

== ENCOUNTER 2025-08-06 08:16 | Outpatient (REF) | payer OTHER, SELFPAY ==
[2025-08-06 16:11] LABS: CT PCR NOT DETECTED (Not Detect.); NG PCR NOT DETECTED (Not Detect.)
== END 2025-08-06 08:17 | disposition home or self-care (01) ==
LOC: HO.LNP 08:16
PROVIDERS: Visit Provider Obstetrics & Gynecology
DX: N93.9 Abnormal uterine and vaginal bleeding, unspecified (principal); Z32.02 Encounter for pregnancy test, result negative; Z20.2 Contact with and (suspected) exposure to infections with a predominantly sexual mode of transmission; Z11.51 Encounter for screening for human papillomavirus (HPV)
CPT/HCPCS: 81025; 87491; 87591; 87626; 88175; 99202

== ENCOUNTER 2025-08-06 08:16 | Outpatient (AMB) | payer OTHER, SELFPAY ==
--- NOTE | 2025-08-06 08:27 | A.OFFVIS_ITS ---
Vital Signs 08/06/25 08:28 Height 5 ft 3 in Weight 231 lb BMI 40.9 BP 126/88 Intake Visit Reasons: endo polp/Internal Referral Ob/Gyn Doctor Required: No Information Interpreted: non-clinical & clinical Accompanied by: Self / Same As Patient Allergies No Known Allergies Allergy (Verified 08/06/25 08:30) Is last menstrual period known: Yes Last menstrual period: 07/27/25 HPI Comments Details: The patient is presenting referred for abnormal finding on pelvic ultrasound done in 12/16/23 which showed the following: Uterus: The uterus is anteverted and measures 10.4 x 5.8 x 6.3 cm. The double wall endometrial thickness is 13 mm. There is a 2.2 x 1.0 x 0.9 cm hyperechoic endometrial polyp present with a feeding vessel being identified. The uterus is smooth in contour and has normal myometrial echogenicity. No visible fibroid. Adnexa: Both ovaries are visualized. There is normal color flow to the adnexa. There is no ovarian torsion. There is no pelvic ascites or fluid collection. Right ovary measures 2.5 x 2.5 x 1.7 cm. No abnormal right adnexal findings. Normal vascularity. Left ovary measures 2.2 x 1.8 x 1.7 cm. No left ovarian/adnexal abnormality appreciated. Normal vascular flow. US/US pelvic and transvaginal IMPRESSION: 2.2 x 1.0 x 0.9 cm echogenic endometrial polyp. The patient is complaining of regular heavy menstrual cycles associated with passage blood clots and pelvic cramping Last co testing many years ago No previous screening mammogram [facility] Medical History (Updated 08/06/25 @ 08:44 by Jericho Calvin MD) Migraine Hypertension HSV (herpes simplex virus) infection Surgical History No pertinent past surgical history Family History (Updated 08/06/25 @ 08:33 by Sindi Lowe CMA) Mother HTN (hypertension) Social History (Updated 08/06/25 @ 08:34 by Sindi Lowe CMA) Household Members: None Housing: Apartment Alcohol intake: never Patient Tobacco Use Status: Never used Tobacco e-Cigarette/Vaping Use: Never Used Second Hand Smoke Exposure: No service: No Current occupational status: employed 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 Sexually active: Yes Sexual orientation: Straight/Heterosexual Gender identity: Female Cognitive needs: No Hearing needs: No Vision needs: No Female Reproductive History Menstrual Age of Menarche: 11 Duration of menses: 3-5 days Date of last menstrual period: 07/27/25 Total pregnancies: 3 Full term: 2 Number of Living Children: 2 Ab spontaneous: 1 Review of Systems Const All systems reviewed & are unremarkable except as noted in HPI and below Card Reports as per HPI Resp Reports as per HPI GI Reports as per HPI and Reports no additional complaints Reports as per HPI Physical Exam Vital Signs: Last Vital Signs BP 126/88 08/06/25 08:28 BMI result Body Mass Index 40.9 Const General: cooperative, healthy appearing and comfortable Chest Chest palpation & inspection: normal inspection of the chest and normal palpation of entire chest wall Breast/axilla inspection: normal inspection of the breasts and normal inspection of the axillae Breast/axilla palpation: normal palpation of the breasts, normal palpation of the axillae and no axillary lymphadenopathy Resp Effort & Inspection: normal respiratory effort Auscultation: clear to auscultation bilaterally Percussion: percussion normal Cardio Palpation: normal PMI Rate: regular rate Rhythm: regular rhythm Heart sounds: no murmurs and no rubs Peripheral pulses: Peripheral pulses 2+ throughout GI Inspection: Yes normal to inspection Palpation (GI): Soft to palpation, nontender, no guarding, not rigid and No hepatosplenomegaly present Percussion: Yes normal to percussion Auscultation: normal bowel sounds Rectal Exam - Female: deferred General: Yes bladder normal to palpation External Female Exam: No lesion Speculum Exam - Vagina: normal appearance of the vagina, normal palpation, normal vaginal discharge and not erythematous Speculum Exam - Cervix: normal appearance of the cervix and normal palpation Bimanual exam- vagina & uterus: normal bimanual exam, normal palpation, uterine size normal, bladder normal to palpation, consistency normal and normal palpation Bimanual Exam- Adnexa, other: normal adnexae, no masses and no tenderness Assessment & Plan Assessment & Plan (1) Abnormal uterine bleeding (AUB): Comment: Endometrial polyp on ultrasound in 12/24 Code(s): N93.9 - Abnormal uterine and vaginal bleeding, unspecified Category: Medical Plan: Screening mammogram, Co testing done, GC and chlamydia taken CBC, TSH, HCG, and repeat pelvic ultrasound ordered, since last ultrasound was 18 months ago. Discussed with the patient the different causes of abnormal bleeding including thyroid disorders, uterine and ovarian pathology, endometrial hyperplasia, carcinoma and other potential causes. Discussed with the patient the work up including CBC (to r/o anemia), TSH, pelvic Ultrasound, endometrial sampling via endometrial biopsy in the office versus hysteroscopy D&C possible polypectomy depending on the finding on the repeat ultrasound to r/o endometrial pathology. All questions answered and the patient verbalized understanding. Instructed the patient to schedule an appointment for an endometrial biopsy in 2 weeks. Orders: Orders MM screening mammo BI Today Z12.31 - Encounter for screening mammogram for malignant neoplasm of breast Complete Blood Count no Diff Today N93.9 - Abnormal uterine and vaginal bleeding, unspecified TSH reflex Free T4 Today N93.9 - Abnormal uterine and vaginal bleeding, unspecified HCG Quantitative Today N93.9 - Abnormal uterine and vaginal bleeding, unspecified US pelvic and transvaginal Today N93.9 - Abnormal uterine and vaginal bleeding, unspecified Coding Level of Care Code New Pt Level 3 (00211) Diagnoses Abnormal uterine bleeding (AUB) N93.9
[2025-08-06 08:28] VITALS: BP 126/88; BMI 40.9
== END 2025-08-06 09:10 | disposition home or self-care (01) ==
LOC: HO.HWS 08:16
PROVIDERS: Visit Provider Obstetrics & Gynecology
DX: Z32.02 Encounter for pregnancy test, result negative (principal); N93.9 Abnormal uterine and vaginal bleeding, unspecified
CPT/HCPCS: 99203

== ENCOUNTER 2025-08-14 14:00 | Outpatient (REF) | payer OTHER, SELFPAY ==
--- NOTE | ~2025-08-14 | US_ITS ---
EXAMINATION: US PELVIS TRANSABDOMINAL AND TRANSVAGINAL HISTORY: N93.9 - Abnormal uterine and vaginal bleeding, unspecified COMPARISON: Comparison is made with the prior examination dated 12/16/2023. TECHNIQUE: Transabdominal and endovaginal real-time 2D solorio-scale ultrasound was performed. FINDINGS: Uterus: The uterus is normal in size, measuring 10.3 x 5.3 x 6.7 cm. Myometrium has a normal echotexture. No fibroids are identified. Endometrium: The endometrial stripe measures 14 mm in thickness. There is a 1.7 x 0.7 x 1.0 cm echogenic focus in the endometrial cavity which likely represents a polyp. There are nabothian cysts in the cervix. Right ovary: The right ovary measures 4.6 x 2.7 x 2.6 cm. The right ovary is normal in size and echotexture. Left ovary: The left ovary measures 3.4 x 2.3 x 1.3 cm. The left ovary is normal in size and echotexture. Pelvic fluid: none. US/US pelvic and transvaginal IMPRESSION: Probable 1.7 x 0.7 x 1.7 cm endometrial polyp. Electronically signed by: Tushar Nava MD 08/14/2025 02:55 PM EDT
== END 2025-08-14 14:01 | disposition home or self-care (01) ==
LOC: HO.US 14:00
PROVIDERS: Visit Provider Obstetrics & Gynecology
DX: N93.9 Abnormal uterine and vaginal bleeding, unspecified (principal)
CPT/HCPCS: 76830; 76856

== ENCOUNTER → 2025-08-14 14:02 | Outpatient (BNV) | payer OTHER, SELFPAY | PROVIDERS: Visit Provider Radiology Diagnostic Radiology | DX: N93.9 Abnormal uterine and vaginal bleeding, unspecified (principal) | CPT/HCPCS: 76830; 76856 ==

== ENCOUNTER 2025-08-28 11:19 | Outpatient (AMB) | payer OTHER, SELFPAY ==
[2025-08-28 11:22] VITALS: BP 152/92; PULSE 83; TEMP 36.2; O2SAT 99; BMI 41.7
--- NOTE | 2025-08-28 11:22 | A.OFFPC_ITS ---
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 Accompanied by: Self / Same As Patient Allergies No Known Allergies Allergy (Verified 08/28/25 11:23) Medication List - Last Reconciled 08/28/25 by Geraldine Nicholas PA-C amlodipine 10 mg PO DAILY cetirizine (All Day Allergy (cetirizine)) 10 mg PO DAILY PRN cholecalciferol (vitamin D3) 25 mcg PO DAILY sodium chloride 0.65% ([place] Saline) 1 spray intranasal BID PRN sumatriptan succinate take 1 tab at onset of headache; if no relief may repeat 1 tab after at least 2 hrs; max = 4 tabs/24 hr valacyclovir (Valtrex) 1,000 mg PO BID 7 days Tobacco use date assessed: 08/28/25 Dental Screening Dental Screen Date: 08/28/25 Did you have a dental visit in the last 12 months?: Yes Did you have a dental problem in the last 6 months where you did not have access to dental care?: No Was dental information given to patient?: Patient has dentist HPI f/u HTN 15 min HPI Details 40-year-old female with past medical his tory of hypertension, migraines and abnormal uterine bleeding last seen 05/2025 coming in for follow up on blood pressure. Presenting for management of hypertension and other musculoskeletal complaints. Regarding her hypertension, she has stopped taking labetalol and reports that amlodipine was more effective for her in the past. Her blood pressure was high during today's visit. She reports waking up with a headache she typically finds she has a headache with elevated blood pressure. Denies any other symptoms at this time. The patient reports neck pain that started about a year ago. She was seen in the emergency department for this pain in January, where an echo, shoulder X-ray, and neck X-ray were all negative. She describes a sensation like an electric shock in the neck area, which is exacerbated by looking down. Additionally, she has been experiencing low back pain, localized to the sacral area, which sometimes radiates a little down the right leg. 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 1. Little interest or pleasure in doing things: several days 2. Feeling down, depressed, or hopeless: several days 3. Trouble falling or staying asleep, or sleeping too much: several days 4. Feeling tired or having little energy: not at all 5. Poor appetite or overeating: several days 6. Feeling bad about yourself - or that you are a failure or have let yourself or your family down: not at all 7. Trouble concentrating on things, such as reading the newspaper or watching television: not at all 8. Moving or speaking so slowly that other people could have noticed. Or the opposite - being so fidgety or restless that you have been moving around a lot more than usual: not at all 9. Thoughts that you would be better off or of hurting yourself in some way: not at all Total score: 4 Depression Screening Interpretation: Positive Depression Screening Done: Yes Source: Developed by Drs. Tushar Robles, Paola Alaniz, Ezekiel Dorsey and colleagues, with an educational viktoriya from [employer] (formerly [employer]). Thrive Questionnaire Date Thrive assessed: 08/28/25 I am a: Patient What is your living situation today?: I do not have a steady places to live I am temporarily staying with others Within the past 12 months, did the food you bought not last and you didn't have the money to get more?: Often true Within the past 12 months, did you worry whether your food would run out before you got money to buy more?: Often true Do you have trouble paying for medicines?: No Do you have trouble getting transportation to medical appointments?: No Do you have trouble paying your heating and electricity bill?: I choose not to answer this question Do you have trouble taking care of your child, family member or friend?: I choose not to answer this question Do you have trouble with day-to-day activities such as bathing, preparing meals, shopping, managing finances, etc.?: No Are you currently unemployed and looking for a job?: Yes Are you interested in more education?: Yes Currently or been in a relationship where the following occur: I choose not to answer THRIVE Score: 3 AUDIT C Alcohol Use Questionnaire (AUDIT-C) 1. How often do you have a drink containing alcohol?: Never 3. How often do you have six or more drinks on one occasion?: Never Total Score: 0 GABBY-7 AMB Questionnaire GABBY-7 Date GABBY - 7 assessed: 08/28/25 Source: Developed by Drs. Tushar Robles, Paola Alaniz, Ezekiel Dorsey and colleagues, with an educational viktoriya from [employer] (formerly [employer]). Review of Systems Const Denies body aches, Denies chills, Denies fever(s), Reports headache(s) and Denies poor appetite Eyes Reports no additional complaints ENT Denies dizziness and Reports headache(s) Card Denies chest pain, Denies syncope, Denies edema, Denies irregular heart rhythm, Denies lightheadedness and Denies dyspnea Resp Denies dyspnea GI Denies abdominal pain, Denies nausea and Denies vomiting Reports no additional complaints Musc Reports no additional complaints and Denies abnormal gait Skin/Breast Reports system reviewed and no additional complaints, except as documented Neuro Denies abnormal gait, Denies dizziness, Denies syncope and Reports headache(s) Psych Reports no additional complaints Physical exam (Primary Care) Vital Signs: Last Vital Signs Temp 97.1 F 08/28/25 11:22 Pulse 83 08/28/25 11:22 Pulse Ox 99 08/28/25 11:22 Oxygen Delivery Method Room Air 08/28/25 11:22 BMI result Body Mass Index 41.7 Tobacco/Smoking Status: Tobacco use Status Tobacco use date assessed 08/28/25 08/28/25 11:24 Patient Tobacco Use Status Never used Tobacco 08/28/25 11:24 Tobacco use type Cigarette 08/28/25 11:24 e-Cigarette/Vaping Use Never Used 08/28/25 11:24 PHQ-9: PHQ-9 Score PHQ-9: Total score 4 08/28/25 11:25 Depression Screening Interpretation: Positive Thrive Assessment: Date of Thrive Assessment Date Thrive assessed 08/28/25 08/28/25 11:25 Currently or been in a relationship where the following occur: I choose not to answer Const General: cooperative, healthy appearing, comfortable and no acute distress Orientation/consciousness: patient oriented x3 HENMT Head: Yes normocephalic Ears: hearing grossly normal bilaterally General nose exam: Normal external nose present Eyes General: appearance normal, both eyes and all related structures Conjunctivae: conjunctivae normal Neck Neck: Yes full ROM and Yes no lymphadenopathy Resp Effort & Inspection: normal respiratory effort Auscultation: clear to auscultation bilaterally, no crackles, no rales, no rhonchi and no wheezes Cardio Rate: regular rate Rhythm: regular rhythm Back/Spine/Pelvis Other: tenderness to palpation over lumbar spine Skin General skin exam: no rashes or lesions noted Neuro General: patient oriented x3 Gait exam (Neuro): Normal gait present Extrem General: Yes normal to inspection, Yes full ROM and No edema Psych Affect: normal affect Attitude: cooperative Insight: Good insight present (Psych) Judgement: Good judgement present (Psych) Coding Level of Care Code Est Pt Level 3 (46745) Diagnoses Hypertension I10 Obesity (BMI 30-39.9) E66.9 Neck pain M54.2 Low back pain M54.50 Assessment & Plan Assessment & Plan (1) Hypertension: Code(s): I10 - Essential (primary) hypertension Category: Medical Plan: Continue on current blood pressure medication. Avoid salt intake and encourage healthy diet and regular exercise. The patient's blood pressure is elevated today, which is the likely cause of her headache. She will restart amlodipine, as she reports it was more effective for her in the past than labetalol. The plan is to start with amlodipine 5 mg daily for one week, then increase to 10 mg daily. A follow-up visit is scheduled in two months to re-evaluate her blood pressure. (2) Obesity (BMI 30-39.9): Code(s): E66.9 - Obesity, unspecified Category: Medical Plan: Healthy diet and regular exercise is encouraged. The patient was previously r eferred to weight management but did not proceed due to . A new referral will be placed for weight management. (3) Neck pain: Code(s): M54.2 - Cervicalgia Category: Medical Plan: The patient has chronic neck pain with radicular symptoms, which has been present for about a year and is exacerbated by looking down. An ED workup in January was unremarkable. Referrals will be placed for both a chiropractor and physical therapy to address the neck pain. (4) Low back pain: Code(s): M54.50 - Low back pain, unspecified Category: Medical Plan: The patient reports low back pain, likely musculoskeletal and exacerbated by prolonged sitting. An X-ray of the lumbar spine will be ordered to rule out any bony pathology. A referral for physical therapy will be placed for her back. The use of a lumbar support pillow while driving was recommended to help with posture and alleviate pain. Plan This note was constructed using voice recognition software. While every effort has been made to ensure accuracy and competitive intelligence manager, still areas may have been included sometimes these areas may affect the content or meeting of the given symptoms. Total time spent caring for the patient today was 20 minutes. This includes time spent before the visit reviewing the chart, time spent during the visit, and time spent after the visit and documentation. Patient was informed and verbally consented to the use of an ambient scribe for clinic note documentation during this visit. Orders: Orders PT Evaluation and Treatment Today M54.2 - Cervicalgia, M54.50 - Low back pain, unspecified XR lumbar spine 2-3V Today M54.50 - Low back pain, unspecified Referrals Chiropractic Referral M54.2 - Cervicalgia Medications: New amlodipine 10 mg PO DAILY 90 tabs 0RF blood pressure monitor As directed; to check BP daily 1 ea 0RF I10 - Essential (primary) hypertension
[2025-08-28 11:53] VITALS: BP 168/100
== END 2025-08-28 12:02 | disposition home or self-care (01) ==
LOC: HO.HMCH 11:20
DX: I10 Essential (primary) hypertension (principal); E66.9 Obesity, unspecified; Z68.41 Body mass index [BMI] 40.0-44.9, adult; M54.2 Cervicalgia; M54.50 Low back pain, unspecified

== ENCOUNTER → 2025-08-28 11:19 | Outpatient (BNVA) | payer OTHER, SELFPAY | DX: I10 Essential (primary) hypertension (principal); G43.909 Migraine, unspecified, not intractable, without status migrainosus; N93.9 Abnormal uterine and vaginal bleeding, unspecified; M54.50 Low back pain, unspecified; M54.2 Cervicalgia; E66.9 Obesity, unspecified; Z68.41 Body mass index [BMI] 40.0-44.9, adult | CPT/HCPCS: 99212 ==

== ENCOUNTER 2025-09-02 08:38 | Outpatient (AMB) | payer OTHER, SELFPAY ==
--- NOTE | 2025-09-02 08:40 | MHC.OFFVIS ---
Intake Visit Reasons: Pre op/Ultrasound follow up [employer] Head: [employer] Head Present Accompanied by: Self / Same As Patient Allergies No Known Allergies Allergy (Verified 09/02/25 08:40) Is last menstrual period known: Yes Last menstrual period: 08/28/20 Post menopausal: No Patient : No Do you need a note to return to daycare/school/sports/work: Yes (for surgery on tuesday) HPI Comments Details: Presenting for ultrasound follow-up done recently which showed the following: Uterus: The uterus is normal in size, measuring 10.3 x 5.3 x 6.7 cm. Myometrium has a normal echotexture. No fibroids are identified. Endometrium: The endometrial stripe measures 14 mm in thickness. There is a 1.7 x 0.7 x 1.0 cm echogenic focus in the endometrial cavity which likely represents a polyp. There are nabothian cysts in the cervix. Right ovary: The right ovary measures 4.6 x 2.7 x 2.6 cm. The right ovary is normal in size and echotexture. Left ovary: The left ovary measures 3.4 x 2.3 x 1.3 cm. The left ovary is normal in size and echotexture. Pelvic fluid: none. 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 Sexual orientation: Straight/Heterosexual Gender identity: Female Cognitive needs: No Hearing needs: No Vision needs: No Female Reproductive History Menstrual Age of Menarche: 11 Date of last menstrual period: 08/28/20 Total pregnancies: 2 Full term: 2 Review of Systems Const All systems reviewed & are unremarkable except as noted in HPI and below Card Reports as per HPI Resp Reports as per HPI GI Reports as per HPI and Reports no additional complaints Reports as per HPI Physical Exam Const General: cooperative, healthy appearing and comfortable Resp Effort & Inspection: normal respiratory effort Auscultation: clear to auscultation bilaterally Percussion: percussion normal Cardio Palpation: normal PMI Rate: regular rate Rhythm: regular rhythm Heart sounds: no murmurs and no rubs Peripheral pulses: Peripheral pulses 2+ throughout GI Inspection: Yes normal to inspection Palpation (GI): Soft to palpation, nontender, no guarding, not rigid and No hepatosplenomegaly present Percussion: Yes normal to percussion Auscultation: normal bowel sounds Rectal Exam - Female: deferred General: Yes bladder normal to palpation External Female Exam: No lesion Speculum Exam - Vagina: normal appearance of the vagina, normal palpation, normal vaginal discharge and not erythematous Speculum Exam - Cervix: normal appearance of the cervix and normal palpation Bimanual exam- vagina & uterus: normal bimanual exam, normal palpation, uterine size normal, bladder normal to palpation, consistency normal and normal palpation Bimanual Exam- Adnexa, other: normal adnexae, no masses and no tenderness Assessment & Plan Assessment & Plan (1) Abnormal uterine bleeding (AUB): Comment: Endometrial polyp on ultrasound Code(s): N93.9 - Abnormal uterine and vaginal bleeding, unspecified Category: Medical Plan: Discussed with the patient the results the ultrasound showing probable endometrial polyp, recommended hysteroscopy D&C possible polypectomy/myomectomy. Discussed with the patient the procedure , all benefits and risks including but not limited to inability to complete the procedure , insufficient endometrial tissue for a complete evaluation of the endometrial cavity , bleeding, infection, possible need for blood transfusion with all its risk ( HIV,syphilis, Hepatitis, anaphylaxis shock, others..), injury to bladder, rectum, possible need for laparoscopy/laparotomy or hysterectomy. The patient verbalized understanding and signed the consent. Instructions given the patient to stay NPO after midnight the day prior to the procedure and to take only the specific medication (s) discussed the morning of the surgical procedure and to schedule a 2 week postoperative appointment Coding Level of Care Code Est Pt Level 3 (02218) Diagnoses Abnormal uterine bleeding (AUB) N93.9
== END 2025-09-02 10:26 | disposition home or self-care (01) ==
LOC: HO.HWS 08:39
PROVIDERS: Visit Provider Obstetrics & Gynecology
DX: N93.9 Abnormal uterine and vaginal bleeding, unspecified (principal)
CPT/HCPCS: 99213

== ENCOUNTER → 2025-09-02 08:38 | Outpatient (BNVA) | payer OTHER, SELFPAY | PROVIDERS: Visit Provider Obstetrics & Gynecology | DX: Z01.818 Encounter for other preprocedural examination (principal); N93.9 Abnormal uterine and vaginal bleeding, unspecified; N84.0 Polyp of corpus uteri | CPT/HCPCS: 99212 ==

== ENCOUNTER 2025-09-20 09:33 | Day surgery (SDC) | payer OTHER, SELFPAY ==
--- NOTE | 2025-09-17 10:56 | P.CONAN_ITS ---
Documented by User: Abby Valentine NP 09/17/25 10:56 HPI - Anesthesia Eval Consult details Narrative: 40yo F for D&C Hysteroscopy,possible myomectomy,possible polypectomy PMFSH Active Problems Active Problems: All Active Problems Uncontrolled hypertension (Acute) Low back pain (Acute) Neck pain (Acute) Abnormal uterine bleeding (AUB) (Acute) HSV (herpes simplex virus) infection (Acute) Sinus pressure (Acute) Constipation (Acute) Obesity (BMI 30-39.9) (Acute) Infertility, female (Acute) Screening for hypercholesterolemia (Acute) Heavy menses (Acute) Hypertension (Acute) Migraine (Acute) Past Medical History Medical History Back pain Migraine Hypertension HSV (herpes simplex virus) infection Family History Family History Mother HTN (hypertension) Surgical History Surgical History [place] teeth extracted Social History Social History Household Members: None Housing: Apartment Alcohol intake: never Patient Tobacco Use Status: Never used Tobacco Tobacco use type: Cigarette e-Cigarette/Vaping Use: Never Used Second Hand Smoke Exposure: No Have you been hit, kicked, punched, or otherwise hurt by someone within the past year? 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 Sexual orientation: Straight/Heterosexual Gender identity: Female Cognitive needs: No Hearing needs: No Vision needs: No Meds Allergies Allergy/AdvReac Type Severity Reaction Status Date / Time No Known Allergies Allergy Verified 09/02/25 08:40 Assessment and Plan Assessment Anesthesia Assessment: Chart Reviewed Documented by User: Wisam Ruffin MD 09/20/25 11:34 [facility] Past Medical History Medical History Back pain Migraine Hypertension HSV (herpes simplex virus) infection Family History Family History Mother HTN (hypertension) Family history of problems with anesthesia: No Surgical History Surgical History [place] teeth extracted History of Problems with Anesthesia: No Social History Social History Household Members: None Housing: Apartment Alcohol intake: never Patient Tobacco Use Status: Never used Tobacco Tobacco use type: Cigarette e-Cigarette/Vaping Use: Never Used Second Hand Smoke Exposure: No Have you been hit, kicked, punched, or otherwise hurt by someone within the past year? 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 Sexual orientation: Straight/Heterosexual Gender identity: Female Cognitive needs: No Hearing needs: No Vision needs: No Meds Allergies Allergy/AdvReac Type Severity Reaction Status Date / Time No Known Allergies Allergy Verified 09/02/25 08:40 Exam Exam Date and Time: 09/20/25 Airway Mallampati Class: II TM Dist: >3cm Neck ROM: Full Heart: rrr Lungs: ctab vesicular Assessment and Plan Assessment Anesthesia Assessment: Anesthesia Plan Discussed Final Anesthetic Review Family History of Problems with Anesthesia: No History of Problems with Anesthesia: No NPO: Yes ASA Class: II Final Preanesthetic Review: No Changes in Pt Med Stat, Meds/Allgs Chart Reviewed, Consent Obtained/Reviewed and Anes Risks/Benef Reviewed Patient Risk: Low Procedure Risk: Low Anesthetic Plan Anesthetic Plan: GA Disposition: Standard PACU
[2025-09-18 11:42] VITALS: BMI 41.6
[2025-09-20 09:54] VITALS: BP 145/88; PULSE 78; RESP 20; TEMP 36.4; O2SAT 97; BMI 41.5
[2025-09-20 09:54] LABS: UPreg QC Valid YES
--- NOTE | 2025-09-20 11:03 | MHC.SHP ---
Pre-Procedural Eval Section A - 24 Hr Update-Section A only Date of Service: 09/20/25 The patient is an INPATIENT: No Changes since office visit: No Cold of Flu in the past 2 weeks, No New Medical Problems, No Changes in Medication and No Patient answered all questions The patient has been examined within 24 hours of the surgical procedure. The History & Physical has been completed within 30 days and I have reviewed it.: Yes Section B - Complete if H&P > 30 days Chief Complaint: Abnormal uterine and vaginal bleeding, unspecified Allergies: Allergies Allergy/AdvReac Type Severity Reaction Status Date / Time No Known Allergies Allergy Verified 09/02/25 08:40 Plan Diagnosis/Plan: Unchanged I have reviewed the history and physical and performed a pertinent physical examination on my patient. No changes have occurred unless specified. Time Spent With Patient Time: Total time managing care of this patient today ____ minutes.
[2025-09-20 11:38] VITALS: BP 134/93; PULSE 83; RESP 10; TEMP 36.1; O2SAT 93
[2025-09-20 11:40] VITALS: BP 139/95; PULSE 74; RESP 12; O2SAT 95
--- NOTE | 2025-09-20 11:41 | P.BOP_ITS ---
Brief Operative Note Date of Service: 09/20/25 Pre-op diagnosis: AUB with endometrial polyp by ultrasound Post-op diagnosis: same (Endometrial polyp) Procedure: Hysteroscopy D&C, Polypectomy Surgeon: Jericho Calvin MD Anesthesia: GLMA Was an Enterprise Applications Manager used for this Procedure?: No Estimated blood loss (mL): 0 Pathology: other (Endometrial Scrapping. Polyp) Condition: stable Disposition: PACU
--- NOTE | 2025-09-20 11:41 | P.OP_ITS ---
Operative Note Operative Note Date of Service: 09/20/25 Narrative: Preop Diagnosis: AUB with Endometrial polyp by US Operation: Diagnostic Hysteroscopy, Dilataion & Curettage and polypectomy Post Op Diagnosis: Endometrial Polyp QBL: Minimal Anesthesia: GLMA Surgeon: Jericho Calvin MD Radio Time Sales Supervisor: None Complication: None Pathology: Endometrial Scrapings, Endometrial polyp Procedure: The patient was put in the dorsal lithotomy position, scrubbed, and draped in the usual manner. A sterile speculum was inserted in the patient's vagina. The anterior lip of the cervix was grasped with a single tooth tenaculum. The cervix was dilated up to 5 mm, then the scope was inserted in the patient's uterus. Inspection revealed endometrial polyp. The Myosure Reach device was used; it was introduced through the operative channel and polypectomy done with no complications. The scope was then taken out from the uterine cavity, sharp curettings was carried on with minimal to moderate amount of tissues retrieved. At the end of the procedure, all instruments were taken out of the patient uterine and vaginal cavity. The single tooth tenaculum was removed and homeostasis was assured using pressure,. The patient tolerated the procedure well and was transferred to the PACU in a stable condition.
[2025-09-20 11:45] VITALS: BP 141/97; PULSE 70; RESP 14; O2SAT 95
[2025-09-20 11:50] VITALS: BP 134/96; PULSE 70; RESP 14; O2SAT 94
[2025-09-20 12:00] VITALS: BP 134/96; PULSE 72; RESP 16; TEMP 36.1; O2SAT 94
== END 2025-09-20 14:22 | disposition home or self-care (01) ==
PROVIDERS: Visit Provider Obstetrics & Gynecology
PROC: 0UDB8ZZ Extraction of Endometrium, Via Natural or Artificial Opening Endoscopic (ICD-10-PCS; CPT 58558; principal; 2025-09-20 12:00)
DX: N93.9 Abnormal uterine and vaginal bleeding, unspecified (principal); N84.0 Polyp of corpus uteri; N88.8 Other specified noninflammatory disorders of cervix uteri; B00.9 Herpesviral infection, unspecified; I10 Essential (primary) hypertension; G43.909 Migraine, unspecified, not intractable, without status migrainosus
CPT/HCPCS: 58558; 81025; 88305; J0131; J1100; J2003; J2405; J2704; J3010

== ENCOUNTER → 2025-09-20 09:33 | Outpatient (BNV) | payer OTHER, SELFPAY | PROVIDERS: Visit Provider Obstetrics & Gynecology | DX: N93.9 Abnormal uterine and vaginal bleeding, unspecified (principal) | CPT/HCPCS: 58558 ==

== ENCOUNTER 2025-10-03 13:02 | Outpatient (AMB) | payer OTHER, SELFPAY ==
--- NOTE | 2025-10-03 13:13 | A.OFFVIS_ITS ---
Vital Signs 10/03/25 13:16 Height 5 ft 4 in Weight 224 lb BMI 38.4 BP 124/78 Intake Visit Reasons: post op [employer] Processing Group Leader Required: No Information Interpreted: non-clinical & clinical Accompanied by: Self / Same As Patient Allergies No Known Allergies Allergy (Verified 10/03/25 13:16) HPI Comments Details: The patient is presenting post hysteroscopy D&C no complaints minimal vaginal bleeding no feverishness chills or abdominal pain. The pathology showed the following: A. Endometrial polyp, resection: Fragments of benign endometrial polyp with cysts, and benign proliferative endometrium with focal gland dilation and focal stromal collapse; no atypia or carcinoma. B. Endometrium, curettage: Benign proliferative endometrium with focal gland dilation and focal stromal collapse, fragments of benign endometrial polyp, and benign endocervical glandular epithelium; no atypia or carcinoma The following workup was done.: H&H= 12.1/37.1 TSH, hCG, GC and chlamydia were negative. Co testing was done was negative. Mammogram ordered but not scheduled yet Pelvic ultrasound showed the following: Uterus: The uterus is normal in size, measuring 10.3 x 5.3 x 6.7 cm. Myometrium has a normal echotexture. No fibroids are identified. Endometrium: The endometrial stripe measures 14 mm in thickness. There is a 1.7 x 0.7 x 1.0 cm echogenic focus in the endometrial cavity which likely represents a polyp. There are nabothian cysts in the cervix. Right ovary: The right ovary measures 4.6 x 2.7 x 2.6 cm. The right ovary is normal in size and echotexture. Left ovary: The left ovary measures 3.4 x 2.3 x 1.3 cm. The left ovary is normal in size and echotexture. Pelvic fluid: none. US/US pelvic and transvaginal IMPRESSION: Probable 1.7 x 0.7 x 1.7 cm endometrial polyp. 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 Sexual orientation: Straight/Heterosexual Gender identity: Female Cognitive needs: No Hearing needs: No Vision needs: No Female Reproductive History Menstrual Age of Menarche: 11 Review of Systems Const All systems reviewed & are unremarkable except as noted in HPI and below Reports as per HPI and Reports no additional complaints GI Reports no additional complaints Reports no additional complaints Assessment & Plan Assessment & Plan (1) Abnormal uterine bleeding (AUB): Comment: Endometrial polyp status post hysteroscopic polypectomy Code(s): N93.9 - Abnormal uterine and vaginal bleeding, unspecified Category: Medical Plan: Recommended the patient to schedule her screening mammogram [place]. Discussed with the patient the results of the work up done and options of treatment including cyclic Provera expectant management. All pros, cons, risks and benefits if each option was discussed with the patient and the patient decided to think about it and get back to us. All questions answered the patient verbalized understanding. Coding Level of Care Code Est Pt Level 3 (18297) Diagnoses Abnormal uterine bleeding (AUB) N93.9
[2025-10-03 13:16] VITALS: BP 124/78; BMI 38.4
== END 2025-10-03 13:25 | disposition home or self-care (01) ==
LOC: HO.HWS 13:02
PROVIDERS: Visit Provider Obstetrics & Gynecology
DX: N93.9 Abnormal uterine and vaginal bleeding, unspecified (principal)
CPT/HCPCS: 99213

== ENCOUNTER → 2025-10-03 13:02 | Outpatient (BNVA) | payer OTHER, SELFPAY | PROVIDERS: Visit Provider Obstetrics & Gynecology | DX: Z48.816 Encounter for surgical aftercare following surgery on the genitourinary system (principal); N93.9 Abnormal uterine and vaginal bleeding, unspecified | CPT/HCPCS: 99212 ==